=== PATIENT | female | born 2000 | race Caucasian/White ===

== ENCOUNTER 2023-03-01 11:03 | Emergency (ER) | payer MEDICAID ==
[~2023-03-01] VITALS: Ht 154.9 cm; Wt 54.5 kg
[2023-03-01 11:32] VITALS: O2SAT 99
[2023-03-01] MEDS ORDERED: ACETAMINOPHEN 500MG TABLET PO ONE (12:15)
[2023-03-01 12:34] LABS: BASOPHILS % 0.4 % (0.0-2.0); EOSINOPHILS % 0.9 % (0.0-5.0); HEMATOCRIT. 36.6 % (36.0-48.0); HEMOGLOBIN. 12.6 g/dL (12.0-16.0); LYMPHOCYTES % 14.8 % (20.0-50.0); MEAN CORPUSCULAR HEMOGLOBIN 31.5 pg (28.0-32.0); MEAN CORPUSCULAR HGB CONC 34.3 g/dL (31.0-37.0); MEAN CORPUSCULAR VOLUME 91.7 fL (81.0-99.0); MEAN PLATELET VOLUME 8.9 fl (7.4-10.4); MONOCYTES % 6.8 % (2.0-8.0); NEUTROPHILS % 77.1 % (40.0-76.0); PLATELET 209 x1000/uL (130-400); RED BLOOD CELL COUNT 3.99 mill/uL (4.2-5.4); RED CELL DISTRIBUTION WIDTH 12.9 % (11.6-14.6); WHITE BLOOD COUNT 10.1 x1000/uL (4.5-11.0)
[2023-03-01 12:39] LABS: CLARITY URINE TURBID (CLEAR); COLOR URINE DARK YELLOW (YELLOW); GLUCOSE URINE NEGATIVE (NEGATIVE); KETONES URINE NEGATIVE (NEGATIVE); LEUKOCYTE ESTERASE URINE 3+ (NEGATIVE); NITRITE URINE POSITIVE (NEGATIVE); OCCULT BLOOD URINE 2+ (NEGATIVE); PROTEIN URINE 2+ (NEGATIVE); SPECIFIC GRAVITY URINE 1.016 (1.005-1.030)
[2023-03-01 12:46] LABS: CHLORIDE 108 mEq/L (98-107); INDEX HEMOLYSI 1 (1-3); INDEX ICTERIC 1 (1-4); INDEX LIPEMIC 1 (1-3); POTASSIUM 3.4 mEq/L (3.5-5.1); SODIUM 137 mEq/L (136-145)
[2023-03-01 13:00] LABS: BACTERIA URINE 4+; CALCIUM OXALATE CRYSTALS URINE 1+ /lpf; RBC URINE 50-100 /hpf (0-2); SQUAMOUS EPITHELIAL CELL URINE 3+ /lpf (RARE/1+); WBC URINE TNTC /hpf (0-2); YEAST URINE NONE SEEN
[2023-03-01 13:09] LABS: ALANINE AMINOTRANSFERASE 18 IU/L (13-61); ALBUMIN 3.6 g/dL (3.4-5.0); ASPARTATE AMINOTRANSFERASE 14 IU/L (15-37); B-HCG QUANTITATIVE 53236 mIU/mL (<3); BILIRUBIN TOTAL 0.4 mg/dL (0.1-1.0); CALCIUM 8.7 mg/dL (8.5-10.1); CARBON DIOXIDE 20 mEq/L (21-32); CREATININE 0.4 mg/dL (0.6-1.3); GLUCOSE 80 mg/dL (70-105); PROTEIN TOTAL 7.5 g/dL (6.0-8.3); UREA NITROGEN BLOOD 6 mg/dL (7-21)
[2023-03-01] MEDS ORDERED: ACETAMINOPHEN 500MG TABLET PO NR (15:02)
[2023-03-01] MEDS ORDERED: CEPH500T MT (15:02)
[2023-03-01] MEDS ORDERED: TOPUD MT (15:02)
[2023-03-01 16:01] VITALS: BP 125/78; PULSE 81; RESP 20; TEMP 98.3
== END 2023-03-01 16:04 | disposition home or self-care (01) ==
LOC: ER 11:03
DX: O23.42 Unspecified infection of urinary tract in pregnancy, second trimester (principal); N39.0 Urinary tract infection, site not specified; Z3A.14 14 weeks gestation of pregnancy
CPT/HCPCS: 36415; 76805; 80053; 81003; 81025; 84702; 85025; 87077; 87186; 99284

== ENCOUNTER 2025-04-01 12:13 | Emergency (ER) | payer OTHER, MEDICAID ==
[~2025-04-01] VITALS: Ht 152.4 cm; Wt 77.0 kg
[~2025-04-01 12:13] MED LIST: CEPH500T MT; TOPUD MT
[2025-04-01 12:28] VITALS: TEMP 36.9; O2SAT 99
[2025-04-01 13:18] LABS: BASOPHILS % 0.5 % (0.0-2.0); EOSINOPHILS % 0.4 % (0.0-5.0); HEMATOCRIT. 38.6 % (36.0-48.0); HEMOGLOBIN. 13.2 g/dL (12.0-16.0); LYMPHOCYTES % 20.7 % (20.0-50.0); MEAN PLATELET VOLUME 9.3 fl (7.4-10.4); MONOCYTES % 4.1 % (2.0-8.0); NEUTROPHILS % 74.3 % (40.0-76.0); PLATELET 235 x1000/uL (130-400); RED BLOOD CELL COUNT 4.34 mill/uL (4.2-5.4); RED CELL DISTRIBUTION WIDTH 12.4 % (11.6-14.6)
[2025-04-01 13:38] LABS: CREATININE 0.6 mg/dL (0.6-1.0); UREA NITROGEN BLOOD 6 mg/dL (9-23)
[2025-04-01 13:40] LABS: HCG SCREEN NEGATIVE
[2025-04-01] MEDS ORDERED: IBUP-2030 MT (14:30)
[2025-04-01] MEDS: KETOROLAC 30MG/ML VIAL IM ONE (15:03)
[2025-04-01 15:14] VITALS: BP 126/81; PULSE 72; RESP 16; O2SAT 100
== END 2025-04-01 15:15 | disposition home or self-care (01) ==
LOC: ER 12:13
DX: R51.9 Headache, unspecified (principal); R42 Dizziness and giddiness; Z98.890 Other specified postprocedural states
CPT/HCPCS: 99285; 70450; 80048; 81025; 84703; 85025; 36415; 96372; J1885